=== PATIENT | female | born 1980 | race Caucasian/White ===

== ENCOUNTER 2019-02-09 18:33 | Emergency (ER) | payer OTHER, MEDICAID ==
[~2019-02-09] VITALS: Ht 162.6 cm; Wt 72.6 kg
[~2019-02-09 18:33] MED LIST: EXCEDRIN CAPLE1 EACH PO; PREDNISONE 20 M20 M1 PO; ZOMIG ZMT5 MG PO
[2019-02-09 18:40] VITALS: BP 137/92
[2019-02-09] MEDS ORDERED: ALBUTEROL2.5 MG/0.1 INH (18:46)
== END 2019-02-09 19:20 | disposition home or self-care (01) ==
LOC: M.ERS 18:33
DX: L03.116 Cellulitis of left lower limb (principal); J45.909 Unspecified asthma, uncomplicated; N80.9 Endometriosis, unspecified; Z88.5 Allergy status to narcotic agent; Z88.6 Allergy status to analgesic agent; Z98.890 Other specified postprocedural states; W57.XXXA Bitten or stung by nonvenomous insect and other nonvenomous arthropods, initial encounter; Y93.89 Activity, other specified; Y92.89 Other specified places as the place of occurrence of the external cause; Y99.8 Other external cause status

== ENCOUNTER 2019-03-13 14:25 | Emergency (ER) | payer OTHER, MEDICAID ==
[~2019-03-13] VITALS: Ht 162.6 cm; Wt 74.8 kg
[~2019-03-13 14:25] MED LIST changes: +ALBUTEROL2.5 MG/0.1 INH
[2019-03-13 14:48] LABS: ABSOLUTE BASOPHILS 0.1 thou/uL (0.0-0.2); ABSOLUTE EOSINOPHILS 0.1 thou/uL (0.0-0.7); ABSOLUTE LYMPHOCYTES 2.5 thou/uL (0.8-5.3); ABSOLUTE MONOCYTES 0.9 thou/uL (0.0-1.2); ABSOLUTE NEUTROPHILS 8.2 thou/uL (1.6-8.1); BASOPHILS 0.6 %; EOSINOPHILS 1.1 %; HEMATOCRIT 41.9 % (37.0-47.0); HEMOGLOBIN 14.6 gm/dL (12.0-15.0); LYMPHOCYTES 21.3 %; MCHC 34.9 g/dL (28.0-37.0); MCV 94.6 fL (80.0-100.0); MONOCYTES 7.5 %; MPV 7.9 fl. (7.2-11.1); NUCLEATED RBCS 0 /100WBC; PLATELET COUNT* 301 thou/uL (150-400); POLYS 69.5 %; RBC 4.43 mil/uL (4.20-5.00); RDW-CV 12.6 % (10.5-14.5); WBC 11.7 thou/uL (4.0-11.0)
[2019-03-13 14:56] LABS: ANION GAP 9 mmol/L (7-16); BUN 14 mg/dL (7-18); CALCIUM 9.1 mg/dL (8.5-10.1); CHLORIDE 101 mmol/L (98-107); CO2 26 mmol/L (21-32); GLUCOSE 133 mg/dL (70-99); POTASSIUM 3.5 mmol/L (3.5-5.1); SODIUM 136 mmol/L (136-145)
[2019-03-13 15:07] LABS: ALBUMIN 3.9 g/dL (3.4-5.0); ALKALINE PHOSPHATASE 93 U/L (46-116); LIPASE 80 U/L (73-393); NT-PRO BRAIN NAT PEPTIDE 51 pg/mL (<300); SGOT 13 U/L (15-37); SGPT 25 U/L (30-65); TOTAL BILIRUBIN 0.3 mg/dL (<0.1-1.0); TOTAL PROTEIN 7.9 g/dL (6.4-8.2); TROPONIN-I LEVEL <0.06 ng/mL (<0.06)
[2019-03-13 15:09] LABS: PROTIME 10.3 Seconds (9.20-11.50)
[2019-03-13] MEDS ORDERED: NAPROSYN500 M1 PO (17:30)
[2019-03-13] MEDS ORDERED: ATIVAN0.5 MG PO (17:30)
[2019-03-13 17:37] VITALS: BP 125/74
--- NOTE | 2019-03-14 12:49 | EKG ---
[place] [address] ELECTROCARDIOGRAM REPORT Name: KENDRICK ARGUELLO Room: [facility]#: [id number] Admission: 03/13/19 Attend Phys: Discharge: 03/13/19 Date of : 76 Report #: [id number] THIS REPORT FOR: //name// [facility] ED Test Date: 2019-03-13 Test Time: 14:31:55 Pat Name: KENDRICK ARGUELLO Department: Room: Gender: F [employer] Trainer: : 1980 Requested By: Matthieu Emery Order Number: [id number] MD: Dylon Chua Measurements Intervals [place] Rate: 59 P: 60 [place]: 131 QRS: 36 QRSD: 115 T: 33 QT: 437 QTc: 433 Interpretive Statements Sinus rhythm Nonspecific intraventricular conduction delay No previous ECG available for comparison Electronically Signed On 03-14-2019 12:49:10 CDT by Dylon Chua [email or web address] <ELECTRONICALLY SIGNED> By: Dylon Chua MD, [facility] 03/14/19 1249 1431 1431 Dylon Chua MD, FACC /EPI
== END 2019-03-13 17:38 | disposition home or self-care (01) ==
LOC: M.ERS 14:25
PROVIDERS: Emergency Medicine
DX: R07.89 Other chest pain (principal); R06.4 Hyperventilation; J45.909 Unspecified asthma, uncomplicated; N80.9 Endometriosis, unspecified; Z88.6 Allergy status to analgesic agent; Z88.5 Allergy status to narcotic agent; Z88.8 Allergy status to other drugs, medicaments and biological substances; Z90.710 Acquired absence of both cervix and uterus

== ENCOUNTER 2021-05-04 11:18 | Emergency (ER) | payer BC, OTHER, MEDICAID ==
[~2021-05-04] VITALS: Ht 162.6 cm; Wt 72.6 kg
[~2021-05-04 11:18] MED LIST changes: +ATIVAN0.5 MG PO; +KEFLEX500 M1 PO; +NAPROSYN500 M1 PO
[2021-05-04 12:18] LABS: URINE BILIRUBIN NEGATIVE (Negative); URINE BLOOD NEGATIVE (Negative); URINE CLARITY CLEAR; URINE COLOR YELLOW; URINE GLUCOSE-RANDOM NEGATIVE (Negative); URINE KETONES NEGATIVE (Negative); URINE LEUKOCYTES-REFLEX NEGATIVE (Negative); URINE NITRITE-REFLEX NEGATIVE (Negative); URINE PROTEIN NEGATIVE (Negative); URINE UROBILINOGEN 0.2 E.U./dl (0.2-1.0)
[2021-05-04 12:26] LABS: ABSOLUTE EOSINOPHILS 0.2 thou/uL (0.0-0.7); ABSOLUTE LYMPHOCYTES 3.4 thou/uL (0.8-5.3); BASOPHILS 0.2 %; EOSINOPHILS 1.5 %; HEMATOCRIT 45.3 % (37.0-47.0); HEMOGLOBIN 15.2 gm/dL (12.0-15.0); LYMPHOCYTES 23.3 %; MCH 33.4 pg (26.0-34.0); MCHC 33.6 g/dL (28.0-37.0); MCV 99.4 fL (80.0-100.0); MONOCYTES 6.6 %; MPV 7.1 fl. (7.2-11.1); NUCLEATED RBCS 0 /100WBC; PLATELET COUNT* 401 thou/uL (150-400); POLYS 68.4 %; RBC 4.56 mil/uL (4.20-5.00); RDW-CV 12.3 % (10.5-14.5); WBC 14.7 thou/uL (4.0-11.0)
[2021-05-04 13:17] LABS: CALCIUM 8.7 mg/dL (8.5-10.1); CREATININE 0.9 mg/dL (0.6-1.3); POTASSIUM 4.3 mmol/L (3.5-5.1)
[2021-05-04 13:20] LABS: ALBUMIN 3.2 g/dL (3.4-5.0); TOTAL BILIRUBIN 0.2 mg/dL (<0.1-1.0); TOTAL PROTEIN 6.8 g/dL (6.4-8.2)
--- NOTE | 2021-05-04 14:04 | EKG ---
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1980 Requested By: Alison Leonard Order Number: [id number] MD: El Louis Measurements Intervals [place] Rate: 54 P: 66 [place]: 149 QRS: 35 QRSD: 107 T: 32 QT: 435 QTc: 413 Interpretive Statements Sinus rhythm RSR' in V1 or V2, right VCD or RVH Compared to ECG 03/13/2019 14:31:55 Right ventricular hypertrophy now present RSR' in V1 or V2 now present Intraventricular conduction delay no longer present Electronically Signed On 05-04-2021 14:04:06 CDT by El Louis [email or web address] <ELECTRONICALLY SIGNED> By: El Louis MD, FACC 05/04/21 1404 1217 1217 El Louis MD, FACC /EPI
[2021-05-04] MEDS ORDERED: FLEXERIL PO (14:23)
[2021-05-04] MEDS ORDERED: NORCO5 PO ×2 (14:23→14:36)
[2021-05-04 14:45] VITALS: BP 136/101
== END 2021-05-04 14:55 | disposition home or self-care (01) ==
LOC: M.ERS 11:18
PROVIDERS: Physician Assistant
DX: R10.11 Right upper quadrant pain (principal); J45.909 Unspecified asthma, uncomplicated; Z90.710 Acquired absence of both cervix and uterus; Z88.5 Allergy status to narcotic agent